=== PATIENT | male | born 1965 | race Caucasian/White ===

== ENCOUNTER → 2019-04-17 15:18 | Outpatient (CLI) | payer BC, SELFPAY ==
--- NOTE | 2019-04-17 15:22 | CA_ITS ---
PROCEDURE: INDICATIONS FOR THE TEST: Chest pain COPD Heart Murmur Tobacco Smoking+ Palpitations Fatigue+ Syncope Edema Hypertension+Diabetes Mellitus Rheumatic Fever SOB+BETANCOURT Obesity Hyperlipidemia+ Family History HD Additional History cad,stents PATIENT INFORMATION HEIGHT: 73 WEIGHT:221 GENDER: Male B/P:108/64 2-D/M-MODE INTERPRETATION: 2-D MEASUREMENTS OBSERVED VALUES IN CMS Right Ventricular Dimension (RVDd) 1.9 Interventricular Septum (Thickness)(IVsd) 0.9 Left Ventricular Internal Dimensions(LVIDd) 5.3 Left Ventricular Posterior Wall (Thickness)(LVPWd) 0.6 Aortic Root 2.5 Aortic Cusp Separation 2.2 Left Atrial Dimensions (LAD) 4.0 2D 1. Left atrium is qualitatively mildly enlarged, left ventricle is normal size, there is no concentric left ventricular hypertrophy, visually estimated ejection fraction of 55% with no regional wall motion abnormality. 2. The right atrium and right ventricle are normal size and contractility. 3. The aortic, mitral and tricuspid valvular grossly normal. 4. The pulmonic valve is poorly visualized. 5. No significant pericardial effusion noted. DOPPLER INTERROGATION: Doppler interrogation of the aortic, mitral and tricuspid valvular presence of mild mitral and tricuspid regurgitation, tricuspid regurgitation jet velocity is inadequate for calculation of the right ventricular systolic pressure, diastolic parameters are within normal range. CONCLUSION: 1. Mildly left atrium, normal left ventricular size, visually estimated ejection fraction 55% with no regional wall motion abnormality. Diastolic parameters are within normal range. 2. Mild mitral and tricuspid regurgitation. 3. No significant pericardial effusion noted.
== END ==
PROVIDERS: PCP Internal Medicine Adolescent Medicine; Visit Provider Nurse Practitioner Family
DX: I11.9 Hypertensive heart disease without heart failure (principal); I25.10 Atherosclerotic heart disease of native coronary artery without angina pectoris; R06.02 Shortness of breath; R53.83 Other fatigue; R40.0 Somnolence
CPT/HCPCS: 93306; 95806

== ENCOUNTER → 2019-08-22 16:45 | Outpatient (CLI) | payer BC, SELFPAY ==
--- NOTE | 2019-08-22 17:02 | XR_ITS ---
PROCEDURE: XR FEMUR RT 2V CLINICAL INDICATION: QUADRICEPS TENDONITIS Pain COMPARISON: XR HIP RT 2-3V W/PELVIS from 08/22/2019 FINDINGS: No fracture or dislocation. No lytic or blastic change. There is normal mineralization. Mild osteoarthritic change of the right hip. There is an os acetabuli present. No fracture or dislocation. No lytic or blastic change. Small bone island is present involving the distal femur. Other findings:Mild osteoarthritis of the left hip IMPRESSION: No acute finding. Mild osteoarthritic change of the hips Dictated by: Mark Galarza MD 08/22/2019 17:27 Electronically signed by Mark Galarza MD in [place] 08/22/2019 17:27
== END ==
PROVIDERS: PCP Nurse Practitioner Family; Visit Provider Nurse Practitioner Family
DX: M76.899 Other specified enthesopathies of unspecified lower limb, excluding foot (principal)
CPT/HCPCS: 73502; 73552

== ENCOUNTER → 2019-09-06 08:29 | Outpatient (CLI) | payer BC, SELFPAY ==
--- NOTE | 2019-09-06 08:31 | MR_ITS ---
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 3-D MIP and myelographic images are also rendered and reviewed FINDINGS: THERE WAS REPORTED TO BE 6 LUMBAR SEGMENTS ON THE PREVIOUS EXAM. THIS NUMBERING SYSTEM WILL BE USED ON TODAY'S EXAM. PLEASE BE AWARE OF THIS FOR ANY INTERVENTION. Spinal cord ends at the L2-L3 level. L2-L3: Mild facet ligamentum hypertrophy. L3-L4: Mild bulging disc along with facet ligamentum hypertrophy L4-5: Degenerative disc disease with bulging disc along with endplate osteophytes and facet ligamentum hypertrophy with moderate to severe bilateral foraminal narrowing. The bulging disc does not appear quite as prominent as it did on the previous exam. The left foraminal narrowing appears somewhat worse L5-L6: Degenerate disc disease with bulging disc and small central disc protrusion with small annular fissure. The bulging disc is slightly eccentric toward the left. There is facet ligamentum hypertrophy with severe left-sided foraminal narrowing and moderate right foraminal narrowing. The left foraminal narrowing may be slightly worse. L6-S1: Unremarkable IMPRESSION: 1. Please make note of the labeling format of the lumbar spine with 6 suspected lumbar vertebra with the labeling performed as before. 2. Multilevel degenerative changes with facet and ligamentum hypertrophy with bulging discs resulting in foraminal and lateral recess narrowing. Please see above for detailed description at each level Dictated by: Mark Galarza MD 09/08/2019 09:40 Electronically signed by Mark Galarza MD in [place] 09/09/2019 07:59
--- NOTE | 2019-09-06 09:32 | HMH.ITSHM ---
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 []MULTI VITAMIN ATORVASTATIN ZYRTEC MELOXICAM ASPIRIN LISINOPRIL ROPINOROLE FENOFIBRATE PRILOSEC
== END ==
PROVIDERS: PCP Nurse Practitioner Family; Visit Provider Nurse Practitioner Family
DX: M54.10 Radiculopathy, site unspecified (principal); M48.061 Spinal stenosis, lumbar region without neurogenic claudication; M51.36 Other intervertebral disc degeneration, lumbar region
CPT/HCPCS: 72158; 76376; A9576

== ENCOUNTER 2019-09-26 16:00 | Outpatient (RCR) | payer BC, SELFPAY ==
--- NOTE | 2019-08-30 17:03 | HMH.PTOPEV ---
PT Outpatient Evaluation Rehab PT Outpatient Evaluation Start: 08/30/19 16:38 Freq: Status: Active Protocol: Document 08/30/19 16:38 JENNYNITIN (Rec: 08/30/19 17:03 CONCETTAPAULA [id number]) Electronically Signed By Deondre Hawkins, MOUNA 08/30/19 16:38 Outpatient Therapy Subjective History Subjective History This is the initial Physical therapy evaluation for Reese Gross. Pt is a 53 y/o male referred to PT for c/o R thigh pain. Pt reports insidious onset of R thigh pain. Pt reports insidious onset around the first of June . Pt reports he was on anti- inflammatory medicine and the pain decreased but slowly returned after coming off medicine. Pt reports pain in thigh is diffuse, deep and along the center line. Chief Complaint Pain,Weakness Symptom Type Ache,Throb,Sharp,Dull Symptoms Relieved By Rest/Positioning,Ice Symptoms Aggravated By Sitting,Standing,Bending/ Stooping,Physical Activity, Twisting,Lifting Prior Functional Limitations None Current Functional Limitations Lifting,Housework,Driving, Sitting,Recreation Activity, Bending/Stooping Symptom Description Intermittent Level of pain today (0-10) 6 Pain scale - at its best (0-10) 0 Pain scale - at its worst (0-10) 7 Lumbopelvic Eval Posture Lumbar Spine Posture Standing Position Flattened Assistive device Assistive Devices None / NA Palapation tenderness bilateral thoracic spinal tenderness No lumbar spinal tenderness Yes paraspinal tenderness No Range of Motion Lumbar Spine Active Flexion Range of 40 Motion (degrees) Lumbar Spine Active Extension Range of 30 Motion (degrees) Lumbar Spine ROM Limitations Pain Manual Muscle Test Left Knee Extension Strength Grade 5 Normal Knee Flexion Strength Grade 5 Normal Hip External Rotation Strength Grade 5 Normal Hip Internal Rotation Strength Grade 5 Normal Ankle Dorsiflexion Strength Grade 5 Normal Right Knee Extension Strength Grade 4- Good- Knee Flexion Strength Grade 4- Good- Hip External Rotation Strength Grade 5 Normal Hip Internal Rotation Strength Grade 5 Normal Ankle Dorsiflexion Strength Grade 4- Good- Special Tests Lumbar Spine Screen Positive
== END 2019-09-26 16:05 | disposition home or self-care (01) ==
LOC: PT 16:00
PROVIDERS: Visit Provider Nurse Practitioner Family
DX: M76.899 Other specified enthesopathies of unspecified lower limb, excluding foot (principal)
CPT/HCPCS: 97010; 97012; 97014; 97110; 97163; G0283

== ENCOUNTER → 2020-06-25 06:13 | Outpatient (CLI) | payer BC, SELFPAY ==
--- NOTE | 2020-06-25 06:14 | CA_ITS ---
APPROVED REPORT Exam: Exercise Treadmill Technologist: Fide Carrington Ht: 6 ft 0 in Wt: 230 lbs BSA: 2.26 m2 HR: 74 bpm BP: 125/78 mmHg Indications: Fatigue, CAD Medical History Medications: Lisinopril,,,,, Omeprazole,,,,, Aspirin,,,,, Atorvastatin,,,,, Citalopram,,,,, Ropinirole,,,,, Multivitamin,,,,, Stress Test Details Test: Mikhail HR Resting HR: 79 bpm Max Heart Rate (APMHR): 165 bpm Max HR Achieved: 160 bpm Target HR (85% APMHR): 140 bpm % of APMHR: 96 Recovery HR: 94 bpm BP Resting BP: 125/78 mmHg Max BP: 172/78 mmHg Recovery BP: 162.0/75.0 mmHg ECG Clinical Exercise duration: 08:32 min Highest Stage Achieved: Exercise capacity: 10.1 METs Stress ECG Conclusion Resting EKG: Normal sinus rhythm, T wave abnormality in III, aVF Patient exercised 8:32 on Mikhail Protocol. Test stopped due to shortness of air, leg fatigue. Symptoms: No chest pain Arrhythmias/Ectopy: Occasional PVC ST-T Changes: 1-1.[address] depression inferiorly. Conclusion: EKG changes positive for ischemia with reduced specificity due to baseline abnormalities. Myoview images reported separately. Test Summary Stage 3 . . . . . . . . REST . . . . . . . Standing REST 06:04 0.0 0.0 79 . 125/ 78 . . Stage 1 01:00 10.0 1.7 100 . . . . Stage 1 02:00 10.0 1.7 108 . . . . Stage 1 03:00 10.0 1.7 111 . 146/ 70 . . Stage 2 01:00 12.0 2.5 121 . . . . Stage 2 02:00 12.0 2.5 127 . . . . Stage 2 03:00 12.0 2.5 132 . 150/ 75 . . Stage 3 01:00 14.0 3.4 146 . . . . Stage 3 . . . . . . . Myoview Injected Stage 3 02:00 14.0 3.4 155 . . . . Stage 3 02:32 14.0 3.4 160 . . . Stop exercise at 08:32 RECOVERY 01:00 0.0 0.0 139 . . . . RECOVERY 02:00 0.0 0.0 123 . 172/ 78 . . RECOVERY 03:00 0.0 0.0 106 . 167/ 84 . . RECOVERY 04:00 0.0 0.0 96 . 167/ 84 . . RECOVERY 05:00 0.0 0.0 105 . 154/ 82 . . RECOVERY 06:00 0.0 0.0 96 . 154/ 82 . . RECOVERY 06:26 0.0 0.0 94 . 162/ 75 . . Electronically signed by : Charly Kowalski, 06/25/2020 19:08:53
--- NOTE | 2020-06-25 06:14 | NM_ITS ---
APPROVED REPORT Exam: Nuclear Stress Test Indication: CAD, DM, Family history, Fatigue Patient Location: Outpatient Stress Tech: Fide Carrington NM Tech:Xenia Rodriguez, ARRT, RT (R)(N) Ht: 6 ft 0 in Wt: 230 lbs HR: 74 bpm BP: 125/78 mmHg BSA: 2.26 m2 History: CAD, DM, Family history, Fatigue Procedure: Patient received a 0.4 mg of intravenous Lexiscan, resting heart rate 74 bpm, resting blood pressure 125/78 mmHg, with Lexiscan maximum heart rate achived was 160 bpm which is Greater than 85 % of the maximum predicted heart rate and blood pressure was 146/70 mmHg. With Lexiscan, patient denied any complaint of chest pain. Electrocardiogram Resting electrocardiogram showed sinus rhythm nonspecific ST-T change mild prominence in the inferior lead. With exercise there is additional millimeter ST segment depression noted from the baseline EKG in the inferior lead. The EKG portion of the exercise sestamibi is nondiagnostic due to baseline abnormal EKG. Cardiac Stress and Resting SPECT Images: Cardiac Stress and Resting SPECT images were obtained using technetium 99m Myoview 32.2 mCi stress and 10.81 mCi at rest. Gated SPECT for the analysis of segmental wall motion and calculation of the ejection fraction also done. Cardiac stress and resting SPECT images show uniform myocardial activity without segmental perfusion abnormality, computer derived ejection fraction is 55% with no regional wall motion abnormality, right ventricle is normal size and contractility. Conclusion: 1. The EKG portion of the exercise sestamibi is nondiagnostic due to baseline abnormal EKG, patient has good exercise capacity achieved 10.1 mets of workload on treadmill, the blood pressure response to exercise was adequate, there was no exercise-induced chest discomfort. 3. No scintigraphic evidence of reversible ischemia seen, computer derived ejection fraction is 55% with no regional wall motion abnormality, right ventricle is normal size and contractility. Electronically signed by : Charly Kowalski, 06/25/2020 19:15:08
--- NOTE | 2020-06-25 08:11 | HMH.ITSHM ---
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 []VITAMINS ASA ZYRTEC LISINOPRIL OMEPRAZOLE FENOFIBRATE CITALOPRAM ROPIRINOLE ATORVASTATIN
== END ==
PROVIDERS: PCP Nurse Practitioner Family; Visit Provider Nurse Practitioner Family
DX: I25.10 Atherosclerotic heart disease of native coronary artery without angina pectoris (principal); R06.02 Shortness of breath; I11.9 Hypertensive heart disease without heart failure; E78.5 Hyperlipidemia, unspecified
CPT/HCPCS: 78452; 93017; A9502

== ENCOUNTER → 2020-08-10 16:30 | Outpatient (CLI) | payer BC, SELFPAY | PROVIDERS: PCP Internal Medicine Adolescent Medicine; Visit Provider Internal Medicine Adolescent Medicine | DX: Z03.818 Encounter for observation for suspected exposure to other biological agents ruled out (principal) | CPT/HCPCS: U0003 ==

== ENCOUNTER → 2021-01-18 08:26 | Outpatient (CLI) | payer BC, SELFPAY ==
[2021-01-18 08:30] LABS: Microscopic, Urine URINE MICROSCOPIC (MICROSCOPIC)
[2021-01-18 09:41] LABS: Alanine Aminotransferase 27 U/L (12-78); Albumin Level 4.9 g/dl (3.5-5.0); Albumin/Globulin Ratio 1.6 (1.1-1.8); Alkaline Phosphatase 45 U/L (38-126); Anion Gap 14.6 mEq/L (5-15); Aspartate Amino Transferase 33 U/L (17-59); Bilirubin,Total 0.4 mg/dl (0.2-1.3); Blood Urea Nitrogen 18 mg/dl (9-20); Calcium 9.6 mg/dl (8.4-10.2); Carbon Dioxide 28 mmol/L (22.0-30.0); Chloride 102 mmol/L (98-107); Chol/HDL Ratio 6.7 (1-3.5); Cholesterol 182 mg/dl (140-200); Estimated Glomerular Filt Rate 77 ml/min (>60); GFR (African American) 94 ML/MIN (>60); Glucose 104 mg/dl (74-100); HDL Cholesterol 27 mg/dl (40-60); Potassium 4.6 mmoL/L (3.5-5.1); Sodium 140 mmol/L (136-145); Total Protein,Serum 7.9 g/dl (6.3-8.2); Triglycerides 367 mg/dl (30-150); VLDL Cholesterol 73 mg/dL (0-40)
[2021-01-18 09:52] LABS: Direct LDL Cholesterol 108.06 mg/dL (100-129)
[2021-01-18 09:58] LABS: Free T4 (Free Thyroxine) 0.81 ng/dl (0.78-2.19)
[2021-01-18 10:12] LABS: Thyroid Stimulating Hormone 1.15 uIU/mL (0.465-4.68)
[2021-01-18 10:26] LABS: Hemoglobin A1C 6.5 % (4.0-6.0)
[2021-01-18 11:27] LABS: Appearance,Urine CLEAR (Clear); Bilirubin,Urine Negative (Negative); Blood, Urine Negative (Negative); Color,Urine YELLOW (Yellow); Glucose,Urine (UA) 3+ (Negative); Ketones,Urine Negative (Negative); Leukocyte Esterase,Urine Negative (Negative); Nitrate,Urine Negative (Negative); Protein,Urine Negative (Negative); Urobilinogen,Urine 0.2 EU/dl (0.2)
[2021-01-18 11:55] LABS: Bacteria,Urine Trace /lpf
== END ==
PROVIDERS: Visit Provider Nurse Practitioner Family
DX: E11.65 Type 2 diabetes mellitus with hyperglycemia (principal); R79.89 Other specified abnormal findings of blood chemistry; E78.2 Mixed hyperlipidemia
CPT/HCPCS: 36415; 80053; 80061; 81001; 83036; 83735; 84439; 84443

== ENCOUNTER 2021-07-07 10:46 | Emergency (ER) | payer BC, SELFPAY ==
[2021-07-07 12:10] VITALS: BP 121/80; PULSE 102; RESP 16; TEMP 36.8; O2SAT 98; BMI 28.5
[2021-07-07 13:47] VITALS: BP 121/80; PULSE 102; RESP 16; TEMP 36.8; O2SAT 98
--- NOTE | 2021-07-07 13:47 | HMH.EDUTC ---
[facility] Disposition Clinical Impression: Encounter for laboratory testing for COVID-19 virus Sinusitis Qualifiers: Sinusitis location: unspecified location Chronicity: unspecified Qualified Code(s): J32.9 - Chronic sinusitis, unspecified Disposition: Home, Self-Care Condition on Discharge: Good Instructions: Sinusitis, DI for Sinusitis Additional Instructions: *Monitor Temp, Over the counter Motrin or Tylenol as directed/as needed Tylenol every 4 hours and Motrin every 6 hours (as long as your family doctor has told you that you can take it) for fever or pain. and straight to ER if unable to lower temp less than 101.0 after medication given *Warm salt water gargles may help to soothe the throat *Throat Lozenges *Warm fluids like tea with honey may help to soothe the throat *Sleep elevated *Humidifier/Vaporizer Take antibiotics as prescribed Follow up IMMEDIATELY for new or worsening symptoms or no Noticeable improvement over the next 48-72 hours. 911 for difficulty breathing or swallowing You were tested for today for COVID19 your test result should be back in the next 24-48 hours, You was given instructions to check on [facility] for your results if you do not have internet access you may call the [facility] You was given a handout with instructions for Self Quarantine and Self isolation for while you wait on test results and what to do if they are positive If you are positive the Health Dept will be contacting you also Make sure to take your Vitamins Vit. C Vit D and Zinc if you can take them Prescriptions: Amoxicillin/Potassium Clav [Augmentin 875-125 Tablet] 1 tab PO Q12H 7 Days #14 tab Transmission Status: Pending to [id number] Benzonatate [Tessalon Perle 100mg Cap*] 100 mg PO TID PRN #30 cap PRN Reason: Cough Transmission Status: Pending to [facility] Referrals: Cyndi Medina APRN [Primary Care Provider] - Forms: Work/School Release Time of Disposition: 13:51 Medical Decision Making - Dean Inquiry Pt receiving controlled substance: No Dean was queried for this patient: No Vital Signs: 07/07/21 12:10 Temperature 98.2 F Temperature Source Oral Pulse Rate [Radial] 102 H Respiratory Rate 16 Blood Pressure [Right Arm] 121/80 Blood Pressure Mean [Right Arm] 93 Blood Pressure Position [Right Arm] Sitting 02 Sat by Pulse Oximetry 98 Oxygen Delivery Method Room Air Orders (Tests/Meds): ORDERS Category Date Time Status Covid-19 Nasal PCR ([facility]) Routine Lab 07/07/21 12:02 Received [facility] HPI - General Stated complaint: covid test/symptoms Time Seen by Provider: 07/07/21 13:47 Mode of Arrival: Ambulatory Source of Information: Patient Limitations: No Limitations Description of Symptoms (Recalled from Triage Doc. by RN): to [facility] with c/o cough, runny nose, headache starting last wednesday. pt states he wants a covid test HEENT Symptoms (Recalled from RN notes): No Resp Symptoms (Recalled from RN notes): Yes Skin Symptoms (Recalled from RN notes): No MS Symptoms (Recalled from RN notes): No Functional Status (Recalled from RN notes): na - History of Present Illness Provider Complaint: Patient states that he has been having cough, sinus congestion and pressure and headache for over a week Denies known exposure to COVID State that today he was still having symptoms and now is having symptoms of COVID so he wanted to get checked and tested - Related Data Home Medications Medication Instructions Recorded Confirmed Atorvastatin Calcium [Atorvastatin 40 mg PO DAILY 01/24/19 07/01/20 40mg Tab] Citalopram Hydrobromide 10 mg PO DAILY 01/24/19 07/01/20 [Citalopram 10mg Tablet] Fenofibrate Nanocrystallized 150 mg PO DAILY 01/24/19 07/01/20 [Fenofibrate] Multivit with Iron,Minerals 1 each PO DAILY 01/24/19 07/01/20 [Multivitamins with Iron] lisinopriL [Lisinopril 5mg 5 mg PO DAILY 01/24/19 07/01/20 Tablet] aspirin 81 mg tablet,delayed 81
--- NOTE | 2021-07-07 19:44 | PC.NURSE ---
INFORMED PATIENT THAT HE WAS POSITIVE
== END 2021-07-07 14:00 | disposition home or self-care (01) ==
PROVIDERS: Emergency Provider Nurse Practitioner; PCP Nurse Practitioner Family
DX: U07.1 COVID-19 (principal)
CPT/HCPCS: 99202; G0463; U0003

== ENCOUNTER 2021-07-09 09:51 | Outpatient (CLI) | payer BC, SELFPAY ==
[2021-07-09] VITALS (8 sets, daily range): BP systolic 114–127; BP diastolic 74–81; PULSE 66–79; RESP 16–20; TEMP 36.7–37; O2SAT 92–96
== END 2021-07-09 12:21 | disposition home or self-care (01) ==
PROVIDERS: PCP Nurse Practitioner Family; Visit Provider Nurse Practitioner Family
DX: U07.1 COVID-19 (principal)
CPT/HCPCS: 96365

== ENCOUNTER → 2021-09-11 06:59 | Outpatient (CLI) | payer BC, SELFPAY ==
[2021-09-11 08:15] LABS: Alanine Aminotransferase 34 U/L (12-78); Albumin Level 4.8 g/dl (3.5-5.0); Albumin/Globulin Ratio 1.5 (1.1-1.8); Alkaline Phosphatase 39 U/L (38-126); Anion Gap 15.6 mEq/L (5-15); Aspartate Amino Transferase 39 U/L (17-59); Bilirubin,Total 0.6 mg/dl (0.2-1.3); Blood Urea Nitrogen 18 mg/dl (9-20); Carbon Dioxide 31 mmol/L (22.0-30.0); Chloride 99 mmol/L (98-107); Chol/HDL Ratio 6.1 (1-3.5); Cholesterol 194 mg/dl (140-200); Estimated Glomerular Filt Rate 87 ml/min (>60); GFR (African American) 106 ML/MIN (>60); Globulin 3.1 g/dL (1.3-3.2); Glucose 101 mg/dl (74-100); HDL Cholesterol 32 mg/dl (40-60); Potassium 5.6 mmoL/L (3.5-5.1); Sodium 140 mmol/L (136-145); Total Protein,Serum 7.9 g/dl (6.3-8.2); Triglycerides 346 mg/dl (30-150); VLDL Cholesterol 69 mg/dL (0-40)
[2021-09-11 08:26] LABS: Direct LDL Cholesterol 119.36 mg/dL (100-129); Hemoglobin A1C 5.6 % (4.0-6.0)
[2021-09-11 12:53] LABS: Creatinine,Urine Random 90 mg/dL (Not Estab.)
[2021-09-11 13:04] LABS: Microalbumin < 6.000 mg/L (0-16.7)
== END ==
PROVIDERS: Visit Provider Nurse Practitioner Family
DX: E11.29 Type 2 diabetes mellitus with other diabetic kidney complication (principal); E78.2 Mixed hyperlipidemia
CPT/HCPCS: 36415; 80053; 80061; 82043; 82570; 83036

== ENCOUNTER → 2022-04-20 10:18 | Outpatient (CLI) | payer BC, SELFPAY ==
[2022-04-20 12:08] LABS: Anion Gap 14.4 mEq/L (5-15); Carbon Dioxide 29 mmol/L (22.0-30.0); Chloride 101 mmol/L (98-107); Potassium 5.4 mmoL/L (3.5-5.1); Sodium 139 mmol/L (136-145)
[2022-04-20 12:09] LABS: Alanine Aminotransferase 33 U/L (12-78); Albumin Level 4.4 g/dl (3.5-5.0); Albumin/Globulin Ratio 1.4 (1.1-1.8); Alkaline Phosphatase 55 U/L (38-126); Aspartate Amino Transferase 36 U/L (17-59); Bilirubin,Total 0.3 mg/dl (0.2-1.3); Blood Urea Nitrogen 18 mg/dl (9-20); Calcium 9.3 mg/dl (8.4-10.2); Chol/HDL Ratio 9.5 (1-3.5); Cholesterol 210 mg/dl (140-200); Estimated Glomerular Filt Rate 87 ml/min (>60); GFR (African American) 105 ML/MIN (>60); Globulin 3.2 g/dL (1.3-3.2); Glucose 115 mg/dl (74-100); HDL Cholesterol 22 mg/dl (40-60); Total Protein,Serum 7.6 g/dl (6.3-8.2)
[2022-04-20 12:30] LABS: Triglycerides 780 mg/dl (30-150)
[2022-04-20 12:50] LABS: Hemoglobin A1C 6.2 % (4.0-6.0)
== END ==
PROVIDERS: PCP Nurse Practitioner Family; Visit Provider Nurse Practitioner Family
DX: E11.29 Type 2 diabetes mellitus with other diabetic kidney complication (principal); E78.2 Mixed hyperlipidemia
CPT/HCPCS: 36415; 80053; 80061; 83036

== ENCOUNTER → 2022-07-03 09:05 | Outpatient (CLI) | payer BC, SELFPAY ==
--- NOTE | 2022-07-03 | CA_ITS ---
APPROVED REPORT EXAM: Comprehensive 2D, Doppler, and color-flow Echocardiogram Waiver Analyst: Ana Kemp RVT Ht: 6 ft 0 in Wt: 220lbs BSA: 2.22 BP: 132/65 mmHg Indications: CAD,HTN,STENT,HLD 2D Dimensions LVOT 2.44 cm (M/F) 1.5-2.5 LA Volume 23.20 mL LA Volume Index 10.45 mL/m2 (M/F) 16-34 M-Mode Dimensions RVDd 2.59 cm (0.9-2.6) LA Diam 3.79 cm (1.9-4.0) LVDd 4.33 cm (3.5-5.7) Ao Diam 3.15 cm (2.0-3.7) LVDs 2.97 cm (3.5-5.7) IVSd 0.51 cm (0.6-1.1) PWd 1.44 cm (0.6-1.1) EF (Teich) 59.50% FS 31.40% EDV (Teich) 84.40 mL TAPSE 2.78 (<1.7) ESV (Teich) 34.20 mL LV Diastology E Decel Time 250.00 (160-240 msec) E/A Ratio 0.7 MED E' 5.70 (< 7 cm/sec) E'/MED E' Ratio 10.37 (>14) LAT E' 6.40 (<10 cm/sec) E/LAT E' Ratio 9.23 (>14) Aortic Valve AO Peak GR. 4.90 mmHg Mitral Valve MV E Max Ike. 59.00 (40-130 cm/s) MV A Velocity 79.00 (40-130 cm/s) E/A Ratio 0.75 MV Decel. Time 250.00 (160-240 ms) MV PHT 73.00 ms Pulmonary Valve PV Peak Velocity 85.00 (50-150 cm/s) Left Ventricle Technically difficult study because of the patient factors and poor acoustic windows. Left atrium is mildly enlarged, left ventricle is normal size mild concentric left ventricular hypertrophy, estimated ejection fraction 55% with no regional wall motion abnormality, grade 1 diastolic dysfunction seen without tissue Doppler evidence of raise left atrial pressure. Right Ventricle Right atrium and right ventricle are normal size and contractility. Aortic Valve Aortic valve is minimally thickened and fibrosed there is no aortic stenosis or aortic insufficiency. Mitral Valve Mitral valve grossly normal, there is trace mitral regurgitation. Tricuspid Valve Tricuspid valve grossly normal, there is trace tricuspid regurgitation, tricuspid regurgitation jet velocity is inadequate for calculation of the right ventricular systolic pressure. Pulmonic Valve Pulmonic valve is poorly visualized. Great Vessels Aortic root is normal size. Inferior vena cava is poorly visualized. Pericardium No significant pericardial effusion noted. Conclusion 1. Mildly enlarged left atrium, normal left ventricular size, mild concentric left ventricular hypertrophy, estimated ejection fraction 55% with no regional wall motion abnormality, endocardial surfaces are poorly visualized, grade 1 diastolic dysfunction seen without tissue Doppler evidence of raise left atrial pressure. 2. Trace mitral and tricuspid regurgitation. 3. No significant pericardial effusion noted. 4. Inferior vena cava is poorly visualized. Electronically signed by : Charly Kowalski MD 07/03/2022 12:53:12
== END ==
PROVIDERS: PCP Nurse Practitioner Family; Visit Provider Nurse Practitioner Family
DX: I25.10 Atherosclerotic heart disease of native coronary artery without angina pectoris (principal); I10 Essential (primary) hypertension
CPT/HCPCS: 93306

== ENCOUNTER → 2023-01-11 08:10 | Outpatient (CLI) | payer BC, SELFPAY ==
[2023-01-11 09:14] LABS: Basophils # 0.1 K/mm3 (0-0.2); Basophils % 1.1 % (0.1-2.0); Eosinophils # 0.3 K/mm3 (0.0-0.4); Eosinophils % 4.4 % (0.1-12.0); Hematocrit 46.7 % (42.0-52.0); Hemoglobin 14.9 g/dL (14.1-18.0); Lymphocytes # 2.1 K/mm3 (0.7-4.5); Lymphocytes % 28.1 % (10-50); Mean Corpuscular HGB Conc 31.9 g/dL (31.8-35.4); Mean Corpuscular Hemoglobin 29.6 pg (27.0-31.2); Mean Corpuscular Volume 92.6 fl (80-94); Monocytes # 0.4 K/mm3 (0.1-1.0); Monocytes % 5.6 % (1.7-9.3); Neutrophils # 4.5 K/mm3 (1.8-7.8); Neutrophils % 60.7 % (37.0-80.0); Platelet Count 293 K/mm3 (142-424); Red Blood Count 5.05 M/mm3 (4.60-6.20); Red Cell Distribution Width 14.8 % (11.5-17.5); White Blood Count 7.4 K/mm3 (4.8-10.8)
[2023-01-11 09:26] LABS: Creatinine,Urine Random 71 mg/dL (Not Estab.)
[2023-01-11 09:33] LABS: Microalbumin < 6.000 mg/L (0-16.7)
[2023-01-11 09:53] LABS: Alanine Aminotransferase 33 U/L (12-78); Albumin Level 4.5 g/dl (3.5-5.0); Albumin/Globulin Ratio 1.7 (1.1-1.8); Alkaline Phosphatase 53 U/L (38-126); Anion Gap 11.4 mEq/L (5-15); Aspartate Amino Transferase 30 U/L (17-59); Bilirubin,Total 0.3 mg/dl (0.2-1.3); Blood Urea Nitrogen 17 mg/dl (9-20); Calcium 8.5 mg/dl (8.4-10.2); Carbon Dioxide 30 mmol/L (22.0-30.0); Chloride 102 mmol/L (98-107); Chol/HDL Ratio 6.3 (1-3.5); Cholesterol 164 mg/dl (140-200); Estimated Glomerular Filt Rate 87 ml/min (>60); GFR (African American) 105 ML/MIN (>60); Globulin 2.6 g/dL (1.3-3.2); Glucose 110 mg/dl (74-100); HDL Cholesterol 26 mg/dl (40-60); Potassium 4.4 mmoL/L (3.5-5.1); Sodium 139 mmol/L (136-145); Total Protein,Serum 7.1 g/dl (6.3-8.2); Triglycerides 364 mg/dl (30-150); VLDL Cholesterol 73 mg/dL (0-40)
[2023-01-11 10:04] LABS: Direct LDL Cholesterol 93.96 mg/dL (100-129)
[2023-01-11 14:08] LABS: Hemoglobin A1C 5.8 % (4.0-6.0)
== END ==
PROVIDERS: PCP Nurse Practitioner Family; Visit Provider Nurse Practitioner Family
DX: E11.29 Type 2 diabetes mellitus with other diabetic kidney complication (principal); E78.2 Mixed hyperlipidemia
CPT/HCPCS: 36415; 80053; 80061; 82043; 82570; 83036; 85025

== ENCOUNTER 2024-01-29 09:07 | Outpatient (CLI) | payer BC, SELFPAY ==
[2024-01-29 09:26] LABS: Basophils # 0.1 K/mm3 (0-0.2); Basophils % 1.3 % (0.1-2.0); Eosinophils # 0.3 K/mm3 (0.0-0.4); Eosinophils % 3.5 % (0.1-12.0); Hematocrit 46.9 % (42.0-52.0); Hemoglobin 14.7 g/dL (14.1-18.0); Lymphocytes # 2.2 K/mm3 (0.7-4.5); Lymphocytes % 28.3 % (10-50); Mean Corpuscular HGB Conc 31.4 g/dL (31.8-35.4); Mean Corpuscular Hemoglobin 30.9 pg (27.0-31.2); Mean Corpuscular Volume 98.3 fl (80-94); Mean Platelet Volume 8.1 fl (7.4-10.4); Monocytes # 0.4 K/mm3 (0.1-1.0); Monocytes % 5.1 % (1.7-9.3); Neutrophils # 4.8 K/mm3 (1.8-7.8); Neutrophils % 61.8 % (37.0-80.0); Platelet Count 267 K/mm3 (142-424); Red Blood Count 4.77 M/mm3 (4.60-6.20); Red Cell Distribution Width 14.2 % (11.5-17.5); White Blood Count 7.7 K/mm3 (4.8-10.8)
[2024-01-29 09:58] LABS: Creatinine,Urine Random 109 mg/dL (Not Estab.)
[2024-01-29 10:34] LABS: Hemoglobin A1C 6.3 % (4.0-6.0)
[2024-01-29 10:35] LABS: Microalbumin < 6.000 mg/L (0-16.7)
[2024-01-29 10:44] LABS: Chloride 105 mmol/L (98-107); Potassium 4.3 mmoL/L (3.5-5.1); Sodium 139 mmol/L (136-145)
[2024-01-29 10:46] LABS: Blood Urea Nitrogen 19 mg/dl (9-20); Estimated Glomerular Filt Rate 86 ml/min (>60); GFR (African American) 105 ML/MIN (>60)
[2024-01-29 10:47] LABS: Alanine Aminotransferase 38 U/L (12-78); Albumin Level 4.5 g/dl (3.5-5.0); Albumin/Globulin Ratio 1.6 (1.1-1.8); Alkaline Phosphatase 58 U/L (38-126); Anion Gap 8.3 mEq/L (5-15); Aspartate Amino Transferase 44 U/L (17-59); Bilirubin,Total 0.5 mg/dl (0.2-1.3); Calcium 9.3 mg/dl (8.4-10.2); Carbon Dioxide 30 mmol/L (22.0-30.0); Cholesterol 186 mg/dl (140-200); Globulin 2.9 g/dL (1.3-3.2); Glucose 101 mg/dl (74-100); Total Protein,Serum 7.4 g/dl (6.3-8.2); Triglycerides 298 mg/dl (30-150); VLDL Cholesterol 60 mg/dL (0-40)
[2024-01-29 10:48] LABS: Chol/HDL Ratio 7.2 (1-3.5); HDL Cholesterol 26 mg/dl (40-60)
[2024-01-29 10:59] LABS: Direct LDL Cholesterol 103.41 mg/dL (100-129)
[2024-01-29 11:43] LABS: Prostate Specific Ag Screen 0.2 ng/ml (0.0-4.0)
== END 2024-01-29 23:59 ==
LOC: LAB 09:08
PROVIDERS: PCP Nurse Practitioner Family; Visit Provider Nurse Practitioner Family
DX: E11.29 Type 2 diabetes mellitus with other diabetic kidney complication (principal); E78.1 Pure hyperglyceridemia; Z79.899 Other long term (current) drug therapy; Z12.5 Encounter for screening for malignant neoplasm of prostate
CPT/HCPCS: 36415; 80053; 80061; 82043; 82570; 83036; 85025; G0103

== ENCOUNTER 2025-03-03 08:08 | Outpatient (CLI) | payer BC, SELFPAY ==
[2025-03-03 09:26] LABS: Basophils # 0.1 K/mm3 (0-0.2); Basophils % 1.1 % (0.1-2.0); Eosinophils # 0.5 Kmm3 (0.0-0.4); Eosinophils % 5.8 % (0.1-12.0); Hematocrit 46.2 % (42.0-52.0); Hemoglobin 14.6 g/dL (14.1-18.0); Lymphocytes # 2.5 K/mm3 (0.7-4.5); Lymphocytes % 29.4 % (10-50); Mean Corpuscular HGB Conc 31.6 g/dL (31.8-35.4); Mean Corpuscular Hemoglobin 29.9 pg (27.0-31.2); Mean Corpuscular Volume 94.5 fl (80-94); Mean Platelet Volume 9.8 fl (7.4-10.4); Monocytes # 0.7 K/mm3 (0.1-1.0); Monocytes % 7.9 % (1.7-9.3); Neutrophils # 4.7 K/mm3 (1.8-7.8); Neutrophils % 55.6 % (37.0-80.0); Nucleated Red Blood Cells # 0 10^3/uL; Nucleated Red Blood Cells % 0 %; Platelet Count 300 K/mm3 (142-424); Red Blood Count 4.89 M/mm3 (4.60-6.20); Red Cell Distribution Width-SD 48.3 fL; White Blood Count 8.4 K/mm3 (4.8-10.8)
[2025-03-03 09:44] LABS: Chloride 102 mmol/L (98-107); Potassium 5.7 mmoL/L (3.5-5.1); Sodium 138 mmol/L (136-145)
[2025-03-03 09:47] LABS: Alanine Aminotransferase 31 U/L (12-78); Albumin/Globulin Ratio 1.9 (1.1-1.8); Alkaline Phosphatase 53 U/L (38-126); Anion Gap 13.7 mEq/L (5-15); Aspartate Amino Transferase 34 U/L (17-59); Bilirubin,Total 0.6 mg/dl (0.2-1.3); Blood Urea Nitrogen 21 mg/dl (9-20); Carbon Dioxide 28 mmol/L (22.0-30.0); Cholesterol 184 mg/dl (140-200); Estimated Glomerular Filt Rate 76 ml/min (>60); GFR (African American) 92 ML/MIN (>60); Globulin 2.6 g/dL (1.3-3.2); Total Protein,Serum 7.6 g/dl (6.3-8.2)
[2025-03-03 09:48] LABS: Calcium 9.4 mg/dl (8.4-10.2); Chol/HDL Ratio 5.9 (1-3.5); Glucose 109 mg/dl (74-100); HDL Cholesterol 31 mg/dl (40-60)
[2025-03-03 09:56] LABS: Triglycerides 452 mg/dl (30-150)
[2025-03-03 09:58] LABS: Creatinine,Urine Random 90 mg/dL (Not Estab.)
[2025-03-03 09:59] LABS: Direct LDL Cholesterol 92.69 mg/dL (100-129)
[2025-03-03 10:38] LABS: Microalbumin < 6.000 mg/L (0-16.7)
[2025-03-03 11:35] LABS: Hemoglobin A1C 6.3 % (4.0-6.0)
[2025-03-03 12:22] LABS: Prostate Specific Ag Screen 0.3 ng/ml (0.0-4.0)
== END 2025-03-03 23:59 | disposition home or self-care (01) ==
LOC: LAB 08:10
PROVIDERS: PCP Nurse Practitioner Family; Visit Provider Nurse Practitioner Family
DX: Z00.00 Encounter for general adult medical examination without abnormal findings (principal); Z12.5 Encounter for screening for malignant neoplasm of prostate; E78.5 Hyperlipidemia, unspecified; I10 Essential (primary) hypertension; E11.69 Type 2 diabetes mellitus with other specified complication; F17.200 Nicotine dependence, unspecified, uncomplicated
CPT/HCPCS: 36415; 80053; 80061; 82043; 82570; 83036; 85025; G0103

== ENCOUNTER 2025-03-29 15:12 | Outpatient (CLI) | payer BC, SELFPAY ==
--- NOTE | 2025-03-29 15:27 | XR_ITS ---
FINAL REPORT CLINICAL HISTORY: Right thigh pain COMPARISON: None FINDINGS: RIGHT HIP Two views of the right hip, with an AP view of the pelvis, demonstrate no acute fracture or dislocation. There are mild hypertrophic changes at the acetabular margin. The joint spaces are preserved. The visualized bony structures are well aligned. No soft tissue abnormality is seen. IMPRESSION: No acute bony abnormality. Reviewed, Interpreted and Dictated by Alfred Canales MD Transcribed by Lisa Giang Authenticated and [facility]
--- NOTE | 2025-03-29 15:27 | XR_ITS ---
FINAL REPORT CLINICAL HISTORY: RT THIGH PAIN COMPARISON: None FINDINGS: LUMBOSACRAL SPINE SERIES Five views of the lumbosacral spine were obtained. There is no fracture present. The vertebrae are normal in height. There is no malalignment. There is prominent anterior osteophyte formation at L2-3, L3-4, and L4-5. Moderate facet sclerosis is noted in the lower lumbar spine. IMPRESSION: Degenerative/chronic changes without acute process. Reviewed, Interpreted and Dictated by Alfred Canales MD Transcribed by Lisa Giang Authenticated and [facility]
[2025-03-29 17:52] LABS: Anion Gap 15.3 mEq/L (5-15); Blood Urea Nitrogen 21 mg/dl (9-20); Calcium 8.6 mg/dl (8.4-10.2); Carbon Dioxide 24 mmol/L (22.0-30.0); Chloride 103 mmol/L (98-107); Estimated Glomerular Filt Rate 86 ml/min (>60); GFR (African American) 104 ML/MIN (>60); Glucose 180 mg/dl (74-100); Potassium 4.3 mmoL/L (3.5-5.1); Sodium 138 mmol/L (136-145)
== END 2025-03-29 23:59 | disposition home or self-care (01) ==
LOC: RAD 15:13
PROVIDERS: PCP Nurse Practitioner Family; Visit Provider Nurse Practitioner Family
DX: M47.816 Spondylosis without myelopathy or radiculopathy, lumbar region (principal); E87.5 Hyperkalemia; M79.651 Pain in right thigh
CPT/HCPCS: 36415; 72110; 73502; 80048

== ENCOUNTER 2025-04-16 09:16 | Outpatient (CLI) | payer BC, SELFPAY ==
--- NOTE | 2025-04-16 09:19 | MR_ITS ---
FINAL REPORT CLINICAL HISTORY: SPINAL STENOSIS OF LUMBAR REGION bilateral leg pain nki COMPARISON: None FINDINGS: Multiplanar MR imaging of the lumbar spine was performed without contrast. On the sagittal T2-weighted images, there is abnormal decreased signal at the L2-3 through L5-S1 disc levels. Moderate disc space narrowing is most evident at L3-4. The vertebrae are normal in height. The vertebral alignment is normal. L1-2: There is no significant canal stenosis or neural foraminal narrowing. L2-3: Mild diffuse disc bulge. Posterolateral disc protrusions. Moderate bilateral neural foraminal narrowing. L3-4: Moderate diffuse disc bulge. Posterolateral disc protrusions. [id number] spinal canal compromise. Moderate to high-grade bilateral neural foraminal narrowing. L4-5: Moderate diffuse disc bulge. Endplate hypertrophy. Facet hypertrophy. High-grade left and moderate to high-grade right neural foraminal narrowing. L5-S1: Mild diffuse disc bulge. Enie-px-yhkbfwhs bilateral neural foraminal narrowing. IMPRESSION: Diffuse changes of degenerative disc disease with neural foraminal compromise most evident on the right at L3-4 and on the left at L4-5. Correlate clinically. No acute bony abnormality. Reviewed, Interpreted and Dictated by Alfred Canales MD Transcribed by Lisa Giang Authenticated and [facility]
--- OUTSIDE RECORDS SUMMARY | 2025-04-16 09:20 | XMS_ITS | Clinical Summary ---
Author Organization [facility] Address [address] [place] [address] Care Team Providers Care Frit Mixer Name Role Phone Unavailable Primary Care Provider Unavailabl e Allergies No known active allergies Medications amLODIPine (Norvasc) 5 MG tablet 06/27/2015 Active buPROPion XL (Wellbutrin XL) 150 MG 24 hr tablet 04/16/2015 Active citalopram (CeleXA) 10 MG tablet 06/27/2015 Active atorvastatin (Lipitor) 20 MG tablet 06/28/2015 Active Multiple Vitamin (MULTI-VITAMINS PO) 06/27/2015 Active omeprazole (PriLOSEC) [address] capsule 06/28/2015 Active rOPINIRole (Requip) 0.5 MG tablet 06/27/2015 Active fenofibrate (Tricor) 145 MG tablet 06/27/2015 Active cetirizine (ZyrTEC ALLERGY) 10 MG tablet 06/27/2015 Active metFORMIN (Glucophage) 1000 MG tablet Take 1 tablet (1,000 mg total) by mouth 2 (two) times a day with meals. 60 tablet 11 07/24/2022 Active empagliflozin (Jardiance) 25 MG Take one tablet by mouth daily 30 tablet 11 07/24/2022 Active Active Problems Problem Noted Date Diagnosed Date Essential hypertension 05/02/2021 Other hyperlipidemia 05/02/2021 Controlled type 2 diabetes m siri, without long-term current use of insulin 11/11/2020 Family History Medical History Relation Name Comments Cardiac disorder Father Hyperlipidemia Mother Relation Name Status Comments Father Mother Social History Tobacco Use Types Packs/Day Years Used Date Smoking Tobacco: Never Smokeless Tobacco: Current Chew Tobacco Cessation:Ready to Q uit: No; Counseling Given: Yes Alcohol Use Standard Drinks/Week Comments Yes 0 (1 standard drink = 0.6 oz pure alcohol) Alcoholic Drinks/day: Occasional alcohol use Sex and Gender Information Value Date Recorded Sex Assigned at Not on file Legal Sex Male 6:15 PM EDT Gender Identity Not on file Sexual Orientation Not on file Last Filed Vital Signs Vital Sign Reading Time Taken Comments Blood Pressure 118/78 11/08/2020 3:24 PM EST Pulse - - Temperature - - Respiratory Rate - - Oxygen Saturation - - Inhaled Oxygen Concentration - - Weight 95.3 kg (210 lb 0.2 oz) 01/16/2021 4:22 P M EDT Height 182.9 cm (6') 08/23/2015 2:14 PM EDT Body Mass Index 28.48 08/23/2015 2:14 PM EDT Plan of Treatment Health Maintenance Due Date Last Done Comments [facility]-Depression Screening 1964 [facility]-Diabetes: Hemoglobin A1C 1964 [facility]-HIV Screening 1964 [facility]-Hepatitis C Screening 1964 [facility]-/Child/Adol SDOH Screenings 1964 Diabetes: Dental Exam 1974 [facility]- SDOH Screenings 1982 [facility]-Adult SDOH Screenings 1982 CT Colonography 2009 Colonoscopy 2009 FIT-DNA 2009 FIT 2009 FOBT 2009 Sigmoidoscopy 2009 [facility]-Colorectal Cancer Screening 2009 [facility]-Pneumococcal Vaccine: 50 + Years (2 of 2 - PCV) 04/04/2019 04/04/2018 [facility]-Zoster Vaccines (2 of 2) 03/20/2021 01/23/2021 [id number] Vaccine (1 - season) 2024 [facility]-Influenza Vaccine (Seaso n Ended) 2025 08/07/2020 [facility]-DTaP,Tdap,and Td Vaccine s (2 - Td or Tdap) 04/04/2028 04/04/2018, 01/03/1997 [facility]-RSV Vaccine: 60+ Years o r (1 - 1-dose 75+ series) 2039 [facility]-Hepatitis A Vaccines Aged Out 019, 10/20/2018 No longer eligible based on patient's age to complete this topic HPV Vaccines Aged Out No longer eligi ble based on patient's age to complete this topic [facility]-HIB Vaccines Aged Out No longer e ligible based on patient's age to complete this topic [facility]-IPV Vaccines Aged Out No longer e ligible based on patient's age to complete this topic [facility]-Rotavirus Vaccines Aged Out No lo nger eligible based on patient's age to complete this topic Insurance [facility]
== END 2025-04-16 23:59 | disposition home or self-care (01) ==
LOC: RAD 09:16
PROVIDERS: PCP Nurse Practitioner Family; Visit Provider Nurse Practitioner Family
DX: M47.816 Spondylosis without myelopathy or radiculopathy, lumbar region (principal); M99.73 Connective tissue and disc stenosis of intervertebral foramina of lumbar region; M48.061 Spinal stenosis, lumbar region without neurogenic claudication; M46.96 Unspecified inflammatory spondylopathy, lumbar region
CPT/HCPCS: 72148

== ENCOUNTER 2025-05-29 15:21 | Outpatient (CLI) | payer BC, SELFPAY ==
--- OUTSIDE RECORDS SUMMARY | 2025-05-29 15:23 | XMS_ITS | Clinical Summary ---
Author Organization [facility] Address [address] [place] [address] Care Team Providers Care Appliances Sample Maker Name Role Phone Cyndi Medina APRN Primary Care Provid er Social History Tobacco Use Types Packs/Day Years Used Date Smoking Tobacco: Never Assessed Sex and Gender Information Value Date Recorded Sex Assigned at Not on file Legal Sex Male 11:39 AM EDT Gender Identity Not on file Sexual Orientation Not on file Plan of Treatment Upcoming Encounters Date Type Department Care Team (Late st Contact Info) Description 06/27/2025 2:00 PM EDT Office Visit [facility] CARDIOLOGY [address] [place] [address] Edi Adan MD [address] [place] [address] Health Maintenance Due Date Last Done Comments ANNUAL PHYSICAL 1965 HEPATITIS C SCREENING 1964 TDAP/TD VACCINES (1 - Tdap) 1983 COLOGUARD 2009 COLON CANCER SCREENING 5 YEAR SIGMOIDOSCOPY 2009 COLONOSCOPY 2009 [address]AL CANCER SCREENING 2009 CT COLONOGRAPHY 2009 FECAL OCCULT BLOOD TEST 2009 FIT Testing (1 year) 2009 Pneumococcal Vaccine 50+ (1 of 1 - PCV) 2014 ZOSTER VACCINE (1 of 2) 2014 COVID-19 Vaccine ( - season) 2024 INFLUENZA VACCINE 08/01/2025 Insurance [place] [id number] [facility] PPO Care Teams Appliances Sample Maker Relationship Specialty Start Date End Date Cyndi Medina APRN [address] [place] [address] PCP - General Family Medicine 05/28/25
--- OUTSIDE RECORDS SUMMARY | 2025-05-29 15:23 | XMS_ITS | Clinical Summary ---
Author Organization [facility] Address [address] [place] [address] Care Team Providers Care Drink Mixer Name Role Phone Unavailable Primary Care [...] UKY-Zoster Vaccines (2 of 2) 03/20/2021 01/23/2021 [id number] Vaccine ( - season) 2024 UKY-Influenza Vaccine (#1) 2025 08/07/2020 UKY-DTaP,Tdap,and Td Vaccine s (2 [...] patient's age to complete [place] [address] [facility]
--- NOTE | 2025-05-29 15:24 | US_ITS ---
FINAL REPORT CLINICAL HISTORY: MASS IN NECK FINDINGS: Limited sonographic images of the lower neck superior to the collarbone were obtained. There is a 4.1 x 2.9 x 3.2 cm heterogeneous soft tissue mass at the area of interest, could represent substernal thyroid/goiter. Other solid neck mass is not excluded. IMPRESSION: Soft tissue mass at their area of interest, could represent substernal thyroid/goiter. If indicated, recommend CT neck with contrast. Reviewed, Interpreted and Dictated by Alix De Anda MD Transcribed by Katiuska Wong Authenticated and [facility]
== END 2025-05-29 23:59 | disposition home or self-care (01) ==
LOC: RAD 15:22
PROVIDERS: PCP Nurse Practitioner Family; Visit Provider Nurse Practitioner Family
DX: R22.1 Localized swelling, mass and lump, neck (principal)
CPT/HCPCS: 76536

== ENCOUNTER 2025-06-14 15:19 | Outpatient (CLI) | payer BC, SELFPAY ==
--- OUTSIDE RECORDS SUMMARY | 2025-06-14 15:21 | XMS_ITS | Clinical Summary ---
Author Organization [facility] Address [address] [place] [address] Care Team Providers Care Reservoir Engineering Advisor Name Role Phone Unavailable Primary Care Provider [...] UKY-HIV Screening 1965 UKY-Hepatitis C Screening 1964 UKY-Infant/Child/Adol SDOH Screenings 1964 Diabetes: Dental Exam 1974 UKY- SDOH Screenings 1982 UKY-Adult SDOH Screenings 1982 CT Colonography 2009 Colonoscopy 2009 FIT-DNA 2009 FIT 2009 FOBT 2009 Sigmoidoscopy 2009 UKY-Colorectal Cancer Screening 2009 UKY-Pneumococcal Vaccine: 50 + Years (2 of 2 - PCV) 04/04/2019 04/04/2018 UKY-Zoster Vaccines (2 of 2) 03/20/2021 01/23/2021 [id number] Vaccine ( - season) 2024 UKY-Influenza Vaccine [...] [place] [address] [facility]
--- OUTSIDE RECORDS SUMMARY | 2025-06-14 15:21 | XMS_ITS | Clinical Summary ---
[facility] Organization [facility] Address [address] [place] [address] Care Team Providers Care Radio Repairer Name Role Phone Cyndi Medina Vickie DESHAWN Primary Care Provid er Encounters Date Type Department Care Team Description 06/13/2025 Telephone [facility] CARDIOLOGY [address] [place] [address] Edi Adan MD from Last 3 Months Social History Tobacco Use Types Packs/Day Years Used Date Smoking Tobacco: Never Assessed Sex and Gender Information Value Date Recorded Sex Assigned at Not on file Legal Sex Male 11:39 AM EDT Gender Identity Not on file Sexual Orientation Not on file Plan of Treatment Upcoming Encounters Date Type Department Care Team (Late st Contact Info) Description 07/25/2025 2:00 PM EDT Office Visit [facility] CARDIOLOGY [address] [place] [address] Edi Adan MD [address] [place] [address] [address] [place] [address] Health Maintenance Due Date Last Done Comments TDAP/TD VACCINES (1 - Tdap) 1983 COLOGUARD 2009 COLON CANCER SCREENING 5 YEAR SIGMOIDOSCOPY 2009 COLONOSCOPY 2009 COLORECTAL CANCER SCREENING 2009 CT COLONOGRAPHY 2009 FECAL OCCULT BLOOD TEST 2009 FIT Testing (1 year) 2009 Pneumococcal Vaccine 50+ (1 of 1 - PCV) 2014 ZOSTER VACCINE (1 of 2) 2014 COVID-19 Vaccine ( - season) 2024 ANNUAL PHYSICAL 06/13/2025 HEPATITIS C SCREENING 06/13/2025 INFLUENZA VACCINE 08/01/2025 Insurance [place] Núñez [id number] [facility] PPO Care Teams Radio Repairer Relationship Specialty Start Date End Date Cyndi Medina APRN [address] [place] [address] PCP - General Family Medicine 05/28/25
--- OUTSIDE RECORDS SUMMARY | 2025-06-14 15:21 | XMS_ITS | Encounter Summary ---
[facility] Address [address] [place] [address] Care Team Providers Care Delivery Stock Clerk Name Role Phone Cyndi Medina SCRUMMASTER Primary Care Provid er Encounter Details Date Type Department Care Team (Late st Contact Info) Description 06/13/2025 Telephone [facility] CARDIOLOGY [address] [place] [address] Edi Herrera MD [facility] [address] [place] [address] Social History Tobacco Use Types Packs/Day Years Used Date Smoking Tobacco: Never Assessed Sex and Gender Information Value Date Recorded Sex Assigned at Not on file Legal Sex Male 11:39 AM EDT Gender Identity Not on file Sexual Orientation Not on file documented as of this encounter Miscellaneous Notes * Telephone Encounter - Rochelle Stern RegSched Rep - 06/13/2025 11:27 AM EDT LVM REGARDING NEW APPT TIME AND DATE WITH DR. HERRERA documented in this encounter Plan of Treatment Upcoming Encounters Date Type Department Care Team (Late st Contact Info) Description 07/25/2025 2:00 PM EDT Office Visit [facility] CARDIOLOGY [address] [place] [address] Edi Herrera MD [address] [place] [address] documented as of this encounter Visit Diagnoses Not on filedocumented in this encounter Care Teams Delivery Stock Clerk Relationship Specialty Start Date End Date Cyndi Medina APRN [address] [facility] [address] [place] [address] PCP - General Family Medicine 05/28/25 documented as of this encounter
--- NOTE | 2025-06-14 15:24 | CT_ITS ---
FINAL REPORT TECHNIQUE: Thin section axial CT images with coronal and sagittal reformats were performed through the neck. This study was performed with techniques to keep radiation doses as low as reasonably achievable (ALARA). Individualized dose reduction techniques using automated exposure control or adjustment of mA and/or kV according to the patient's size were employed. CLINICAL HISTORY: MASS IN NECK x 1 month COMPARISON: Ultrasound examination of the thyroid gland 05/29/2025 FINDINGS: CT NECK SOFT TISSUES: Examination of the soft tissues of the neck was performed without intravenous contrast to evaluate a possible mass seen on ultrasound examination of 05/29/2025. The nasopharynx, oropharynx, hypopharynx, and larynx are unremarkable in appearance. The submandibular and parotid glands are unremarkable. No significant cervical mass or adenopathy is identified. There was an abnormality noted on the recent ultrasound, that may represent subcutaneous fat, as no focal mass is identified in the lower neck. The thyroid gland is mildly atrophic. IMPRESSION: No focal mass is identified in the soft tissues of the neck, including the region of the thyroid gland and suprasternal soft tissues. The thyroid gland is mildly atrophic. Reviewed, Interpreted and Dictated by Chris Cook MD Transcribed by Dori Hunter Authenticated and [facility]
== END 2025-06-14 23:59 | disposition home or self-care (01) ==
LOC: RAD 15:20
PROVIDERS: PCP Nurse Practitioner Family; Visit Provider Internal Medicine Adolescent Medicine
DX: E03.4 Atrophy of thyroid (acquired) (principal); R22.1 Localized swelling, mass and lump, neck
CPT/HCPCS: 70490

== ENCOUNTER 2025-07-11 14:15 | Outpatient (CLI) | payer BC, SELFPAY ==
--- NOTE | 2025-07-11 14:18 | CT_ITS ---
FINAL REPORT TECHNIQUE: Thin section axial CT images with coronal and sagittal reformats were performed after the administration of IV contrast. This study was performed with techniques to keep radiation doses as low as reasonably achievable (ALARA). Individualized dose reduction techniques using automated exposure control or adjustment of mA and/or kV according to the patient's size were employed. CLINICAL HISTORY: Palp area noted at Sternoclavicular joints - F/U from MRI and CT COMPARISON: 07/24/2024 FINDINGS: The nasopharynx, oropharynx, epiglottis, and larynx are unremarkable. The salivary glands are unremarkable in appearance. The thyroid gland is homogeneous without evidence of nodules. No cervical adenopathy is noted. There is a somewhat oval hypodense collection between the heads of the clavicles and the sternoclavicular notch. This collection measures 36 mm in the axial plane, is fluid density and slightly asymmetric to the right. It is uncertain if this collection is associated with the right sternoclavicular joint. This may communicate with the right sternoclavicular joint. There are likely effusions in the bilateral sternoclavicular joints. There are degenerative changes in the sternoclavicular joints. No bone destruction is identified. There are postoperative changes in the anterior cervical spine at the C5-6 level. IMPRESSION: 1. Somewhat oval hypodense collection between the heads of the clavicles in the sternoclavicular notch as described above. This may be secondary to an inflammatory arthropathy. Infection is much less likely. Consider MRI with special attention to the sternoclavicular joints. Reviewed, Interpreted and Dictated by Alix De Anda MD Transcribed by Dori Hunter Authenticated and [facility]
--- OUTSIDE RECORDS SUMMARY | 2025-07-11 14:19 | XMS_ITS | Encounter Summary ---
[facility] Address [address] [place] [address] Care Team Providers Care Data Support Specialist Name Role Phone Cyndi Medina SALES AND PRODUCTION MANAGER Primary Care Provid er Encounter Details Date Type Department Care Team (Late st Contact Info) Description 06/13/2025 Telephone [facility] CARDIOLOGY [address] [place] [address] Edi Herrera MD [facility] [address] [place] [address] Social History Tobacco Use Types Packs/Day Years [...] Description 07/25/2025 2:00 PM EDT Office Visit [facility] CARDIOLOGY [address] [place] [address] Edi Herrera MD [address] [place] [address] documented as of this encounter Visit Diagnoses Not on filedocumented in this encounter Care Teams Data Support Specialist Relationship Specialty Start Date End Date Cyndi Medina APRN [address] [facility] [address] [place] [address] PCP - General Family Medicine 05/28/25 documented as of this encounter
--- OUTSIDE RECORDS SUMMARY | 2025-07-11 14:19 | XMS_ITS | Encounter Summary ---
Author Organization [facility] Address [address] [place] [address] Care Team Providers Care Communications Scientist Name Role Phone Bernard Tubbs MD Primary Care Provider [phone] Reason for Referral * Consultation (Routine) - Authorized Specialty Diagnoses / Procedures Referred By Conternie lassiter Referred To Contact Sports Medicine Diagnoses Acute pain of right shoulder Clavicular asymmetry Cyndi Medina APRN [address] [address] Phone: tel: fax: Thad Garcia MD [address] [place] [address] Phone: tel: fax: Referral ID Status Reason Start Date Expiration Date Visits Requested Visits Authorized [id number] Authorized Specialty Services Required 06/19/2025 12/19/2026 1 1 Encounter Details Date Type Department Care Team (Late st Contact Info) Description 06/19/2025 Community Orders Community [facility] [address] [place] [address] Cyndi Medina APRN [address] [address] Acute pain of right shoulder (Primary Dx); Clavicular asymmetry Social History Tobacco Use Types Packs/Day Years Used Date Smoking Tobacco: Never Smokeless Tobacco: Current Chew Alcohol Use Standard Drinks/Week Comments Yes 0 (1 standard drink = 0.6 oz pure alcohol) Alcoholic Drinks/day: Occasional alcohol use Sex and Gender Information Value Date Recorded Sex Assigned at Not on file Legal Sex Male 6:15 PM EDT Gender Identity Not on file Sexual Orientation Not on file documented as of this encounter Plan of Treatment Scheduled Referrals Name Type Priority Associated Diagnoses Order Schedule Ambulatory referral to Orthopaedics Sports Medicine Outpatient Referral Routine Acute pain of right shoulder Clavicular asymmetry Expected: 06/19/2025 (Approximate), Expires: 12/21/2026 documented as of this encounter Visit Diagnoses Diagnosis Acute pain of right shoulder- Primary Clavicular asymmetry documented in this encounter Care Teams Communications Scientist Relationship Specialty Start Date End Date Bernard Tubbs MD [address] [place] [address] PCP - General Internal Medicine 06/21/25 documented as of this encounter
--- OUTSIDE RECORDS SUMMARY | 2025-07-11 14:19 | XMS_ITS | Encounter Summary ---
Author Organization [facility] Address [address] [place] [address] Care Team Providers Care Collision Center Manager Name Role Phone Bernard Tubbs MD Primary Care Provider [phone] Encounter Details Date Type Department Care Team (Late st Contact Info) Description 06/25/2025 Telephone [facility] Orthopaedic Surgery & Sports Medicine [address] [place] [address], [address] [place] [address] Jessica Caraballo Social History Tobacco Use Types Packs/Day Years [...] encounter Miscellaneous Notes * Telephone Encounter - Jessica Caraballo - 06/25/2025 1:17 PM EDT LVM asking about prior imaging done prior to his apt tomorrow documented in this encounter Plan of Treatment Not on file documented as of this encounter Visit Diagnoses Not on filedocumented in this encounter Care Teams Collision Center Manager Relationship Specialty Start Date End Date Bernard Tubbs MD [address] [place] [address] PCP - General Internal Medicine 06/21/25 documented as of this encounter
--- OUTSIDE RECORDS SUMMARY | 2025-07-11 14:19 | XMS_ITS | Clinical Summary ---
[facility] Address [address] [place] [address] Care Team Providers Care Care Mgr Name Role Phone Cyndi Medina Vickie DESHAWN Primary Care Provid er Encounters Date Type Department Care Team Description 06/13/2025 Telephone [facility] CARDIOLOGY [address] [place] [address] Edi Adan MD from Last [...] Description 07/25/2025 2:00 PM EDT Office Visit [facility] CARDIOLOG[facility] [address] [place] [address] Edi Adan MD [address] [place] [address] [address] [place] [address] Health Maintenance Due Date Last Done Comments TDAP/TD VACCINES (1 - Tdap) 1983 COLOGUARD 2009 COLON CANCER SCREENING 5 YEAR SIGMOIDOSCOPY 2009 COLONOSCOPY 2009 COLORECTAL CANCER SCREENING [address] CT COLONOGRAPHY 2009 FECAL OCCULT BLOOD TEST 2009 FIT Testing (1 year) 2009 Pneumococcal Vaccine 50+ (1 of 1 - PCV) 2014 ZOSTER VACCINE (1 of 2) 2014 ANNUAL PHYSICAL 06/13/2025 HEPATITIS C SCREENING 06/13/2025 COVID-19 Vaccine (2023- season) 2025 INFLUENZA VACCINE 08/01/2025 Insurance [place] Núñez [id number] [facility] PPO Care Teams Care Mgr Relationship Specialty Start Date End Date Cyndi Medina APRN [address] [place] [address] PCP - General Family Medicine 05/28/25
--- OUTSIDE RECORDS SUMMARY | 2025-07-11 14:19 | XMS_ITS | Clinical Summary ---
Author Organization [facility] Address [address] [place] [address] Care Team Providers Care Unattended Ground Sensor Specialist Name Role Phone Bernard Tubbs MD Primary Care Provider [phone] Allergies No known active allergies Medications amLODIPine [...] Other hyperlipidemia 05/02/2021 Controlled type 2 diabetes walter horner, without long-term current use of insulin 11/11/2020 Encounters Date Type Department Care Team Description 06/25/[address] [facility] Orthopaedic Surgery & Sports Medicine [address] [place] [address] Jessica Caraballo 06/19/2025 [facility] [address] [place] [address] Cyndi Medina APRN Acute pain of right shoulder (Primary Dx); Clavicular asymmetry from Last 3 Months Family History Medical History Relation Name Comments [...] UKY-Zoster Vaccines (2 of 2) 03/20/2021 01/23/2021 [id number] Vaccine ( season) 2025 UKY-Influenza Vaccine (#1) 2025 08/07/2020 UKY-DTaP,Tdap,and Td [...] patient's age to complete this topic Insurance [place] SANCHEZ [id number] [address] Care Teams Unattended Ground Sensor Specialist Relationship Specialty Start Date End Date Bernard Tubbs MD [address] [place] [address] PCP - General Internal Medicine 06/21/25
[2025-07-11 14:58] LABS: Blood Urea Nitrogen 19 mg/dl (9-20); Creatinine,Serum 0.90 mg/dl (0.66-1.25); Estimated Glomerular Filt Rate 86 ml/min (>60); GFR (African American) 104 ML/MIN (>60)
[2025-07-11] MEDS: IOPAMIDOL-370 (76%);100ML BOTTLE 75 ML IV (15:38)
[2025-07-11] MEDS: SODIUM CHLORIDE 0.9% 10ML SYR (RAD ONLY) 10 ML IV (15:38)
== END 2025-07-11 23:59 | disposition home or self-care (01) ==
LOC: RAD 14:16
PROVIDERS: PCP Nurse Practitioner Family; Visit Provider Otolaryngology
DX: R93.7 Abnormal findings on diagnostic imaging of other parts of musculoskeletal system (principal)
CPT/HCPCS: 36415; 70491; 82565; 84520; Q9967

== ENCOUNTER 2025-07-18 15:32 | Outpatient (CLI) | payer BC, SELFPAY ==
--- OUTSIDE RECORDS SUMMARY | 2025-07-18 15:37 | XMS_ITS | Encounter Summary ---
Author Organization [facility] Address [address] [place] [address] Care Team Providers Care Vegetable Specker Name Role Phone Bernard Tubbs MD Primary Care Provider [phone] Reason for Referral * Consultation (Routine) - Authorized Specialty Diagnoses / Procedures Referred By Conternie lassiter Referred To Contact Sports Medicine Diagnoses Acute pain of right shoulder Clavicular asymmetry Cyndi Medina APRN [address] [address] Phone: tel: fax: Thad Garcia MD [address] [place] [phone] Phone: tel: fax: Referral ID Status Reason Start Date Expiration Date Visits Requested Visits Authorized [id number] Authorized Specialty Services Required 06/19/2025 12/19/2026 1 1 Encounter Details Date Type Department Care Team (Late st Contact Info) Description 06/19/2025 Community Orders Community Practice [address] [place] [address] Cyndi Medina APRN [address] [address] Acute pain of right shoulder [...] as of this encounter Plan of Treatment Upcoming Encounters Date Type Department Care Team (Late st Contact Info) Description 07/24/2025 3:00 PM EDT Office Visit [facility] Orthopaedic Surgery & Sports Medicine [address] [facility], [address] [place] [address] Thad Garcia MD [address] [facility] [address] [place] [address] Scheduled Referrals Name Type Priority Associated Diagnoses Order Schedule Ambulatory referral to Orthopaedics Sports Medicine Outpatient Referral Routine Acute pain of right shoulder Clavicular asymmetry Expected: 06/19/2025 (Approximate), Expires: 12/21/2026 documented as of this encounter Visit Diagnoses Diagnosis Acute pain of right shoulder- Primary Clavicular asymmetry documented in this encounter Care Teams Vegetable Specker Relationship Specialty Start Date End Date Bernard Tubbs MD [address] [place] [address] PCP - General Internal Medicine 06/21/25 documented as of this encounter
--- OUTSIDE RECORDS SUMMARY | 2025-07-18 15:37 | XMS_ITS | Clinical Summary ---
Author Organization [facility] Address [address] [place] [address] Care Team Providers Care Produce Laborer Name Role Phone Bernard Tubbs MD Primary Care Provider [phone] Allergies No known active allergies Medications amLODIPine [...] Type Department Care Team Description 06/25/2025 Telephone [facility] Orthopaedic Surgery & Sports Medicine [address] [place] [address] Jessica Caraballo 06/19/2025 [facility] Community Practice [address] [place] [address] Cyndi Medina APRN Acute pain of right [...] 08/23/2015 2:14 PM EDT Plan of Treatment Upcoming Encounters Date Type Department Care Team (Late st Contact Info) Description 07/24/2025 3:00 PM EDT Office Visit [facility] Orthopaedic Surgery & Sports Medicine [address] [place] [address] Thad Garcia MD [address] [place] [address] Health Maintenance Due Date Last Done Comments [...] UKY-Zoster Vaccines (2 of 2) 03/20/2021 01/23/2021 [id number] Vaccine (1 - season) 2025 UKY-Influenza Vaccine (#1) 2025 08/07/2020 [...] age to complete [place] [address] PATRICE Care Teams Produce Laborer Relationship Specialty Start Date End Date Bernard Tubbs MD [address] [place] [address] PCP - General Internal Medicine 06/21/25
--- OUTSIDE RECORDS SUMMARY | 2025-07-18 15:37 | XMS_ITS | Encounter Summary ---
Author Organization [facility] Address [address] [place] [address] Care Team Providers Care Pin Machine Tender Name Role Phone Bernard Tubbs MD Primary Care Provider [phone] Encounter Details Date Type Department Care Team (Late st Contact Info) Description 06/25/2025 Telephone [facility] Orthopaedic Surgery & Sports Medicine [address] [facility], [address] [place] [address] Jessica Caraballo Social History Tobacco [...] Description 07/24/2025 3:00 PM EDT Office Visit [facility] Orthopaedic Surgery & Sports Medicine [address] [facility], [address] [place] [address] Thad Garcia MD [address] [facility] [address] [place] [address] documented as of this encounter Visit Diagnoses Not on filedocumented in this encounter Care Teams Pin Machine Tender Relationship Specialty Start Date End Date Bernard Tubbs MD [address] [place] [address] PCP - General Internal Medicine 06/21/25 documented as of this encounter
[2025-07-18 16:15] LABS: Hematocrit 42.9 % (42.0-52.0); Hemoglobin 14.3 g/dL (14.1-18.0); Immature Granulocytes % 0.2 %; Mean Corpuscular HGB Conc 33.3 g/dL (31.8-35.4); Mean Corpuscular Hemoglobin 31.0 pg (27.0-31.2); Mean Corpuscular Volume 93.1 fl (80-94); Nucleated Red Blood Cells % 0 %; Platelet Count 260 K/mm3 (142-424); Red Blood Count 4.61 M/mm3 (4.60-6.20); Red Cell Distribution Width-SD 47.7 fL; White Blood Count 6.4 K/mm3 (4.8-10.8)
[2025-07-18 16:47] LABS: Anion Gap 14.2 mEq/L (5-15); Blood Urea Nitrogen 17 mg/dl (9-20); Calcium 8.8 mg/dl (8.4-10.2); Carbon Dioxide 25 mmol/L (22.0-30.0); Chloride 103 mmol/L (98-107); Creatinine,Serum 0.80 mg/dl (0.66-1.25); Estimated Glomerular Filt Rate 99 ml/min (>60); GFR (African American) 119 ML/MIN (>60); Glucose 125 mg/dl (74-100); Potassium 4.2 mmoL/L (3.5-5.1); Sodium 138 mmol/L (136-145); Uric Acid 3.1 mg/dl (3.5-8.5)
[2025-07-18 16:57] LABS: C-Reactive Protein 1.3 mg/L (0-4)
[2025-07-18 17:21] LABS: Thyroid Stimulating Hormone 0.90 uIU/mL (0.465-4.68)
[2025-07-20 08:33] LABS: RA Latex Turbid. 10.8 IU/mL (<14.0)
[2025-07-20 13:12] LABS: Antinuclear Antibodies (ANA) Negative (Negative)
== END 2025-07-18 23:59 | disposition home or self-care (01) ==
LOC: LAB 15:33
PROVIDERS: PCP Nurse Practitioner Family; Visit Provider Nurse Practitioner Family
DX: M25.48 Effusion, other site (principal)
CPT/HCPCS: 36415; 80048; 84443; 84550; 85025; 85651; 86140; 86200; 86431